=== PATIENT | male | born 1990 | race American Indian/Alaskan Native ===

== ENCOUNTER 2021-11-28 01:19 | Emergency (ER) | payer SELFPAY ==
[2021-11-28] MEDS ORDERED: AMOXICILLIN/K CLAV 875/125MG TAB PO ONE (02:17)
[2021-11-28] MEDS ORDERED: diphenhydrAMINE 25 MG CAP PO ONE (02:17)
[2021-11-28] MEDS ORDERED: ACETAMINOPHEN 500 MG TAB PO ONE (02:17)
--- NOTE | 2021-11-28 02:22 | Emergency Department Report ---
ED General Adult HPI - General Chief complaint: Earache Stated complaint: EAR/HEADACHE Time Seen by Provider: 11/28/21 02:02 Source: patient Mode of arrival: Ambulatory Limitations: No Limitations - History of Present Illness Initial comments: Patient is a 30-year-old -[place] male who presents for bilateral ear pain for the past 2 weeks. States seen by urgent care center diagnosed with otitis media was told to treat with ibuprofen. Now states pressure to the frontal and maxillary sinuses and intermittent headache, pressure, level 4/10, with noc fever, patient states associated yellow-greenish rhinorrhea. Denies decrease in hearing however. Symptoms are exacerbated by position and movement. It was all relieved by nothing tried. She denies cough or shortness of breath no wheezing no stridor. There is no dizziness or lightheadedness. - Related Data Previous Rx's Medication Instructions Recorded Last Taken Type Amoxicillin/K Clav Tab [Augmentin 1 each PO ONCE 7 Days #14 tablet 11/28/21 Unknown Rx 875MG TAB] Ciprofloxacin HCl/Dexameth 2 drop PO BID 7 Days #7.5 ml 11/28/21 Unknown Rx [Ciprodex Otic Suspension] Ibuprofen [Motrin 800 MG tab] 800 mg PO Q8HR PRN #30 tablet 11/28/21 Unknown Rx predniSONE [Deltasone] 20 mg PO QDAY 5 Days #5 tab 11/28/21 Unknown Rx Allergies Allergy/AdvReac Type Severity Reaction Status Date / Time No Known Allergies Allergy Verified 11/28/21 02:00 ED Review of Systems ROS: Stated complaint: EAR/HEADACHE Other details as noted in HPI Constitutional: denies: chills, fever Eyes: denies: eye pain, eye discharge, vision change ENT: ear pain, congestion. denies: throat pain Respiratory: denies: cough, shortness of breath, wheezing Cardiovascular: denies: chest pain, palpitations Endocrine: no symptoms reported Gastrointestinal: denies: abdominal pain, nausea, vomiting, diarrhea Genitourinary: denies: urgency, dysuria Musculoskeletal: denies: back pain, joint swelling, arthralgia Skin: denies: rash, lesions Neurological: headache. denies: weakness, numbness, paresthesias, confusion, vertigo Psychiatric: denies: anxiety, depression Hematological/Lymphatic: denies: easy bleeding, easy bruising ED Past Medical Hx - Past Medical History Hx Asthma: Yes - Surgical History Past Surgical History?: No - Medications Home Medications: Home Medications Medication Instructions Recorded Confirmed Last Taken Type Amoxicillin/K Clav Tab [Augmentin 1 each PO ONCE 7 Days #14 tablet 11/28/21 Unknown Rx 875MG TAB] Ciprofloxacin HCl/Dexameth 2 drop PO BID 7 Days #7.5 ml 11/28/21 Unknown Rx [Ciprodex Otic Suspension] Ibuprofen [Motrin 800 MG tab] 800 mg PO Q8HR PRN #30 tablet 11/28/21 Unknown Rx predniSONE [Deltasone] 20 mg PO QDAY 5 Days #5 tab 11/28/21 Unknown Rx ED Physical Exam - General Limitations: No Limitations General appearance: alert, in no apparent distress - Head Head exam: Present: normocephalic, normal inspection - Eye Eye exam: Present: normal appearance, PERRL, EOMI. Absent: conjunctival injection, nystagmus Pupils: Present: normal accommodation - ENT ENT exam: Present: mucous membranes moist, other (bilat frontal and maxillary pain to palpation, no swelling no erythema, Turbinates are boggy clear yellow drainage, ) - Expanded ENT Exam Expanded TM/Canal exam: Erythema: Right TM, Left TM, Loss of Landmarks: Right TM, Left TM, Canal Tenderness: Right TM, Left TM Throat exam: Positive: normal inspection. Negative: tonsillar erythema, tonsillomegaly, tonsillar exudate - Neck Neck exam: Present: normal inspection, full ROM, lymphadenopathy. Absent: tenderness, meningismus, thyromegaly - Expanded Neck Exam Expanded Neck exam: Absent: midline deformity, anterior neck swelling, thyroid mass, carotid bruit, tracheal deviation - Respiratory Respiratory exam: Present: normal lung sounds bilaterally. Absent: respiratory distress, wheezes, stridor, chest wall tenderness - Cardiovascular Cardiovascular Exam: Present: regular rate, normal rhythm, normal heart sounds. Absent: systolic murmur, diastolic murmur, rubs, gallop - GI/Abdominal GI/Abdominal exam: Present: soft, normal bowel sounds. Absent: distended, tenderness, guarding, rebound, rigid, bruit, hernia - Rectal Rectal exam: Present: deferred - Extremities Exam Extremities exam: Present: normal inspection, full ROM, normal capillary refill. Absent: tenderness - Back Exam Back exam: Present: normal inspection, full ROM. Absent: tenderness, CVA tenderness (R), CVA tenderness (L) - Neurological Exam Neurological exam: Present: alert, oriented X3, CN II-XII intact, normal gait, reflexes normal. Absent: motor sensory deficit - Expanded Neurological Exam Expanded Patient oriented to: Present: person, place, time Best Eye Response (Milton): (4) open spontaneously Best Motor Response (Bart): (6) obeys commands Best Verbal Response (Milton): (5) oriented Bart Total: 15 - Psychiatric Psychiatric exam: Present: normal affect, normal mood - Skin Skin exam: Present: warm ED Course Vital Signs 11/28/21 02:00 Temperature 99.0 F Pulse Rate 86 Respiratory 18 Rate Blood Pressure 132/91 O2 Sat by Pulse 100 Oximetry ED Medical Decision Making - Medical Decision Making Sinusitis with sinus headache, there is no fever at this time, pt is A/o x 3 ,ambulatory with steady gait, plan dc to home with rx, follow up with pcp in 2-3 days return to ed if symptoms worsen. Critical care attestation.: If time is entered above; I have spent that time in minutes in the direct care of this critically ill patient, excluding procedure time. ED Disposition Clinical Impression: Sinus headache AOM (acute otitis media) Qualifiers: Otitis media type: serous Laterality: bilateral Recurrence: recurrent Qualified Code(s): H65.06 - Acute serous otitis media, recurrent, bilateral Disposition: 01 HOME / SELF CARE / HOMELESS Is pt being admited?: No Does the pt Need Aspirin: No Condition: Stable Instructions: Otitis Media, Adult, Sinus Headache Additional Instructions: Take medications as prescribed, hydrate as directed. Follow-up with your doctor in 2 to 3 days. Return to emergency department should symptoms worsen. Prescriptions: Amoxicillin/K Clav Tab [Augmentin 875MG TAB] 1 each PO ONCE 7 Days #14 tablet Ciprofloxacin HCl/Dexameth [Ciprodex Otic Suspension] 2 drop PO BID 7 Days #7.5 ml predniSONE [Deltasone] 20 mg PO QDAY 5 Days #5 tab Ibuprofen [Motrin 800 MG tab] 800 mg PO Q8HR PRN #30 tablet PRN Reason: pain fever Referrals: SYBIL RUBI MD [Staff Physician] - 3-5 Days Forms: Work/School Release Form(ED) Time of Disposition: 02:47
[2021-11-28 03:56] VITALS: BP 124/78
== END 2021-11-28 03:56 | disposition home or self-care (01) ==
LOC: ED 01:19
DX: H66.93 Otitis media, unspecified, bilateral (principal); R51.9 Headache, unspecified; J45.909 Unspecified asthma, uncomplicated; Z79.899 Other long term (current) drug therapy
CPT/HCPCS: 99282